=== PATIENT | female | born 1950 | race Asian ===

== ENCOUNTER 2022-04-15 19:16 | Emergency (ER) | payer OTHER ==
[2022-04-15 19:24] VITALS: BMI 23.1
[2022-04-15] MEDS ORDERED: ACETAMINOPHEN 500 MG TABLET (FP) PO ONE (22:10)
[2022-04-15] MEDS ORDERED: ACETAMINOPHEN 325 MG TABLET (FP) ONE (22:15)
[2022-04-15 22:26] VITALS: BP 127/73; PULSE 57; RESP 17; TEMP 97.5
== END 2022-04-15 22:46 | disposition home or self-care (01) ==
LOC: JER 19:16
DX: M17.11 Unilateral primary osteoarthritis, right knee (principal)
CPT/HCPCS: 72170-TC-FY; 73552-TC-RT-FY; 73562-TC-RT-FY; 73590-TC-RT-FY; 99284-25